=== PATIENT | male | born 1945 | race Two or more races ===

== ENCOUNTER 2019-02-25 11:08 | Emergency (ER) | payer SELFPAY ==
[2019-02-25 11:58] LABS: MICROSCOPIC AUTO
[2019-02-25 12:01] LABS: CULTURE INDICATED? NO
--- NOTE | 2019-02-25 12:36 | NUR ---
Patient given [facility]olaños care/discharge instructions and they have confirmed that they understand the instructions. Patient ambulatory with steady gait.
== END 2019-02-25 12:43 | disposition home or self-care (01) ==
LOC: ED 12:22
DX: N40.0 Benign prostatic hyperplasia without lower urinary tract symptoms (principal); R33.9 Retention of urine, unspecified; Z72.9 Problem related to lifestyle, unspecified; Z75.9 Unspecified problem related to medical facilities and other health care; Z63.8 Other specified problems related to primary support group
CPT/HCPCS: 51702; 81001; 99284; C1726

== ENCOUNTER 2019-03-01 00:43 | Emergency (ER) | payer OTHER ==
[~2019-03-01] VITALS: Ht 177.8 cm; Wt 68.0 kg
[2019-03-01 00:47] VITALS: BP 155/117
[2019-03-01] MEDS ORDERED: AZITHROMYCIN 500 MG TABLET PO ONE (01:00)
[2019-03-01] MEDS ORDERED: CEFTRIAXONE 250 MG IM ONE (01:00)
[2019-03-01] MEDS ORDERED: LIDOCAINE 2%,20 ML JEL.PF.APP MM ONE (01:00)
--- NOTE | 2019-03-01 01:34 | NUR ---
PT ARRIVED WITH A POON CATHETER IN PLACE AND LEG BAG WAS EMPTY. PT STATES CATHETER WAS NOT DRAINING URINE AND PT WITH C/O PENILE DISCHARGE. POON REMOVED AND A NEW POON INSERTED WITH LARGE AMOUNT OF BROWN/CLOUDY URINE DRAINING INTO BAG. WHEN URINE STARTED DRAINING PT VERBALIZED RELIEF. URINE SAMPLE OBTAINED AND SENT TO LAB.
[2019-03-01] MEDS ORDERED: LIDOCAINE-MPF 1%, 2ML ONE (01:43)
[2019-03-01] MEDS ORDERED: AZITHROMYCIN 500 MG TABLET ONE (01:43)
[2019-03-01] MEDS ORDERED: CEFTRIAXONE 250 MG ONE (01:43)
[2019-03-01 01:48] LABS: MICROSCOPIC INDICATED
[2019-03-01 01:49] LABS: CULTURE INDICATED? YES
--- NOTE | 2019-03-01 02:23 | NUR ---
LEG BAG APPLIED AND PT READY FOR DISCHARGE. PT TO FOLLOW UP WITH UROLOGY TO HAVE POON ASSESSED. INFORMATION PROVIDED IN DISCHARGE PAPERWORK.
== END 2019-03-01 02:25 | disposition home or self-care (01) ==
LOC: ED 02:19
DX: N39.0 Urinary tract infection, site not specified (principal)
CPT/HCPCS: 51702; 81001; 87077; 87086; 87186; 87491; 87591; 96372; 99284; J0696